=== PATIENT | female | born 1945 | race Caucasian/White ===

== ENCOUNTER 2020-07-17 12:13 | Outpatient (CLI) | payer MEDICARE, SELFPAY ==
--- NOTE | 2020-07-17 12:23 | XR_ITS ---
WS: [id number] EXAM: RIGHT KNEE: 3 VIEWS DATE OF EXAMINATION: 07/17/2020, 1232 hours COMPARISON: None. 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 Minimal joint fluid suprapatellar pouch. No fracture, lytic or blastic process is seen. Extra-articular soft tissues are unremarkable. XR/XR knee RT 3V* [id number] IMPRESSION: Slight changes of tricompartmental osteoarthritis with minimal joint fluid. No acute bony abnormality.
== END 2020-07-17 12:14 | disposition home or self-care (01) ==
PROVIDERS: PCP Electrodiagnostic Medicine; Visit Provider Electrodiagnostic Medicine
DX: M25.561 Pain in right knee (principal)
CPT/HCPCS: 73562

== ENCOUNTER 2020-07-19 11:58 | Emergency (ER) | payer MEDICARE, SELFPAY ==
[2020-07-19 12:08] VITALS: BP 143/85; PULSE 65; RESP 18; TEMP 36.4; O2SAT 98; BMI 31.8
--- NOTE | 2020-07-19 12:40 | XRR_ITS ---
PROCEDURE INFORMATION: Exam: XR Right Knee Exam date and time: 07/19/2020 1:09 PM Age: 74 years old Clinical indication: Pain; Swelling or effusion of joint; Knee; Right; Prior surgery; Surgery type: Meniscus; Additional info: Pain and swelling TECHNIQUE: Imaging protocol: XR Right knee. Views: 3 views. COMPARISON: CR XR knee RT 3V* [id number] 07/17/2020 12:30 PM FINDINGS: Bones/joints: Negative for acute bony abnormality. There is tricompartmental narrowing corresponding to mild osteoarthritis. Soft tissues: Normal. XR/XR knee RT 3V* [id number] IMPRESSION: Mild osteoarthritis Otherwise No acute findings.
--- NOTE | 2020-07-19 13:06 | USCV_ITS ---
[place], [place] Age: 74 Gender: F : 1945 Exam Date: 07/19/2020 14:01 Ordering Phys: Donny Taylor Technologist: Amber Ortiz Exam Location: [facility] [place] Indication: SWELLING AND PAIN HISTORY: Lower extremity swelling. PROCEDURES: Venous duplex imaging was performed in only the right lower extremity. The following venous structures were evaluated: common femoral vein, profunda vein, proximal portion of the greater saphenous vein, superficial femoral vein, and the popliteal vein. In addition, the posterior tibial and peroneal trunk were evaluated. Serial compression, augmentation maneuvers, and spectral Doppler flow evaluation were performed. FINDINGS: Normal 2-D Doppler and augmentation and compressibility throughout the lower extremity venous structures. Additional imaging through the proximal calf veins also reveals no thrombus. Limited evaluation of the greater saphenous vein is patent with no thrombus. CONCLUSIONS No DVT right lower extremity. Dr. Riya Bustillo DO (Electronically Signed) Final Date: 19 July 2020 15:42 S
--- NOTE | 2020-07-19 13:16 | W.ED.EXTPRO ---
HPI - Extremity Problem General: Chief complaint: Extremity Problem,Nontraumatic Stated complaint: right leg pain Time Seen by Provider: 07/19/20 13:09 History of Present Illness: HPI Narrative: Patient complains about right thigh muscle leg pain since Wednesday. Has been taking Excedrin for it has helped minimally she went saw her primary care provider Wednesday he ordered a knee x-ray which showed arthritis but she said it never has been her knee that is been bothering her is been her thigh muscle the whole time and it feels like a charley horse down from her thigh down to her calf hurts to bear weight on it. She denies any history of sciatica back pain or any low status problems. She has no redness no right lower extremity but she said it does appear somewhat swollen MD Complaint: extremity pain and extremity swelling Onset (ago): day(s) Pain Consistency: constant Location: right and lower extremity Severity scale (1-10): 5 Quality: aching and dull Radiation: distal Relieving factors: immobilization Exacerbating factors: range of motion and weight bearing Associated symptoms: Reports no associated symptoms; Deny chest pain, fever(s) or rash Review of Systems Const: Denies: fever(s), chills or body aches Eyes: Denies: change in vision or blurry vision ENMT: Denies: throat pain or nasal congestion Card: Denies: chest pain or dyspnea on exertion Resp: Denies: dyspnea, productive cough or non-productive cough GI: Denies: abdominal pain, nausea or vomiting Musc: Reports: extremity pain (Right lower extremity from thigh down to the calf) and extremity swelling Skin/Breast: Denies: rash Neuro: Denies: headache(s) Psych: Denies: anxiety or depression Akbar/Lymph: Denies: easy bruising Physical Exam Const: COMMON NORMALS: no acute distress, average body habitus and patient oriented x3 HENMT: COMMON NORMALS: normocephalic HEAD & SCALP: normal to inspection and normocephalic FACE & SINUS: normal facial exam Eye: COMMON NORMALS: conjunctivae normal GENERAL EYE: appearance normal, both eyes and all related structures CONJUNCTIVA: Yes conjunctivae normal Neck/C-Spine: COMMON NORMALS: no JVD Chest: COMMONS NORMALS: normal inspection of the chest Resp: COMMON NORMALS: normal respiratory effort and clear to auscultation bilaterally AUSCULTATION: clear to auscultation bilaterally Cardio: COMMON NORMALS: no JVD, regular rate and regular rhythm RATE: regular rate RHYTHM: regular rhythm GI: COMMON NORMALS: Normal to inspection, nondistended, normoactive bowel sounds present Extremity: COMMON NORMALS: normal to inspection RIGHT LOWER EXTREMITY: Yes lower leg (Has tenderness to the right posterior thigh and also to her calf positive Homans sign no redness no swelling noted does have positive pulses) Neuro: COMMON NORMALS: patient oriented x3 Course Vital Signs: Vital signs: Vital Signs Temperature 97.5 F L 07/19/20 12:08 Pulse Rate 62 07/19/20 14:17 Respiratory Rate 16 07/19/20 14:17 Blood Pressure 139/86 07/19/20 14:17 Pulse Oximetry 97 07/19/20 14:17 MDM - Extremity (Nontraumatic) MDM Narrative: Medical decision making narrative: Bloods not drawn due to unknown reason advised patient of what probable diagnosis says she did 1 go and have blood drawn afterwards that she not follow-up with her doctor. Ultrasound was negative. Discharge Plan Discharge Patient Disposition: Home Clinical Impression: Muscle strain of thigh Qualifiers: Encounter type: initial encounter Laterality: right Qualified Code(s): S76.911A - Strain of unspecified muscles, fascia and tendons at thigh level, right thigh, initial encounter Condition: Stable Discharge Orders: Discharge Order (Routine); Ordered 07/19/20 Ordered By: Donny Taylor Referrals: Isma Marcum DO [Primary Care Provider] - Discharge Diet: Usual diet Discharge Activity: Increase activity as tolerated Patient Instructions: Muscle Strain (ED) Activity Restrictions/Additional Instructions: Follow-up Dr. Marcum as directed. Alternate heat and ice 20 minutes at times up to 6 times a day. Use a roller on thigh muscle. Discharge Date/Time: 07/19/20 14:25 Coding Level of Care Code ED Transfer Machine Operator for Chg Fwd Exam Comprehensive
--- NOTE | 2020-07-19 14:02 | PC.NURSE ---
NO REPORT ASSUMED CARE OF PT.
[2020-07-19 14:17] VITALS: BP 139/86; PULSE 62; RESP 16; O2SAT 97
--- NOTE | 2020-07-19 14:17 | PC.NURSE ---
PT IS CALM COOPERATIVE AND ANSWERING QUESTIONS APPROPRIATELY. PT BREATHING IS NONLABORED. RATE AND RHYTHM ARE WNL. PT SKIN IS WARM DRY AND PINK.
== END 2020-07-19 14:25 | disposition home or self-care (01) ==
PROVIDERS: Emergency Provider Nurse Practitioner Family; PCP Electrodiagnostic Medicine
DX: S76.911A Strain of unspecified muscles, fascia and tendons at thigh level, right thigh, initial encounter (principal); X58.XXXA Exposure to other specified factors, initial encounter
CPT/HCPCS: 12345; 73562; 93971; 99281; 99283

== ENCOUNTER 2022-09-29 09:59 | Outpatient (CLI) | payer MEDICARE, SELFPAY ==
--- NOTE | 2022-09-29 10:17 | USCV_ITS ---
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 No evidence of any significant arterial obstruction, based on the above findings. Dr Katy Sosa MD [facility] (Electronically Signed) Final Date: 29 September 2022 21:29 S
== END 2022-09-29 10:00 | disposition home or self-care (01) ==
PROVIDERS: PCP Electrodiagnostic Medicine; Visit Provider Electrodiagnostic Medicine
DX: M79.89 Other specified soft tissue disorders (principal)
CPT/HCPCS: 93922

== ENCOUNTER → 2023-01-06 09:25 | Outpatient (BNVA) | payer MEDICARE, SELFPAY | PROVIDERS: PCP Electrodiagnostic Medicine; Visit Provider Specialist | DX: G62.89 Other specified polyneuropathies (principal) | CPT/HCPCS: 95909 ==

== ENCOUNTER → 2023-06-10 11:04 | Outpatient (BNVA) | payer MEDICARE, SELFPAY | PROVIDERS: PCP Family Medicine; Referring Provider Family Medicine; Visit Provider Psychiatry & Neurology Neurology | DX: R60.9 Edema, unspecified; E11.42 Type 2 diabetes mellitus with diabetic polyneuropathy; Z87.19 Personal history of other diseases of the digestive system; R01.1 Cardiac murmur, unspecified | CPT/HCPCS: 80053; 82652; 82746; 83921; 84155; 84165; 84439; 84443; 84481; 85025; 85651; 86140; 86160; 86162; 86235; 86255; 86334; 86376; 86617; 86780; 99203 ==

== ENCOUNTER 2023-08-05 14:59 | Outpatient (RCR) | payer MEDICARE, SELFPAY | END 2023-08-31 23:59 | disposition home or self-care (01) | LOC: SPT 14:59 | PROVIDERS: Visit Provider Psychiatry & Neurology Neurology | DX: I89.0 Lymphedema, not elsewhere classified (principal) | CPT/HCPCS: 97110; 97161 ==

== ENCOUNTER 2023-09-01 06:00 | Outpatient (RCR) | payer MEDICARE, SELFPAY | END 2023-09-30 23:59 | disposition home or self-care (01) | LOC: SPT 06:00 | PROVIDERS: Visit Provider Psychiatry & Neurology Neurology | DX: I89.0 Lymphedema, not elsewhere classified (principal) | CPT/HCPCS: 97110 ==

== ENCOUNTER 2023-10-01 06:00 | Outpatient (RCR) | payer MEDICARE, SELFPAY | END 2023-10-01 23:59 | disposition home or self-care (01) | LOC: SPT 06:00 | PROVIDERS: Visit Provider Psychiatry & Neurology Neurology | DX: I89.0 Lymphedema, not elsewhere classified (principal) | CPT/HCPCS: 97110 ==

== ENCOUNTER 2024-02-07 20:14 | Emergency (ER) | payer MEDICARE, SELFPAY ==
[2024-02-07 20:16] VITALS: BP 116/73; PULSE 84; TEMP 36.6; O2SAT 95
[2024-02-07] MEDS: famotidine 20 mg/2 mL INJ 40 MG IVP (20:37)
[2024-02-07] MEDS: diphenhydrAMINE 50 mg/mL SDV 1mL 25 MG IVP (20:38)
[2024-02-07] MEDS: methylPREDNISolone sod succ 125 mg/2 mL INJ IVP (20:38)
[2024-02-07] MEDS: metoclopramide 5 mg/mL SDV 2 mL 10 MG IVP (20:38)
[2024-02-07 21:01] VITALS: BP 139/79; PULSE 72; RESP 16; O2SAT 93
--- NOTE | 2024-02-07 21:49 | ED_ITS ---
HPI - Allergic Reaction General: Chief complaint: Allergic Reaction Stated complaint: allergic rxn Time Seen by Provider: 02/07/24 20:24 History of Present Illness: HPI narrative: 78-year-old female presents emergency de partment with concerns for having alejandro rgic reaction. She states that she was around her who is burning yard debris this afternoon when she suddenly began to feel like she was having shortness of breath, scratchy throat, generalized body erythema and urticaria. She states she also feels like her tongue is swelling. She states she is unsure if she was exposed to anything specifically and she is only allergic to latex and Tylenol. She does appear to be very anxious at present. Review of Systems General: Reports: 10 or more systems reviewed and unremarkable except in HPI and below Skin/Breast: Reports: rash, pruritus and erythema PFS ED PFSH: Medical History Diabetes mellitus Edema Social History Smoking and tobacco/nicotine status: never used tobacco/nicotine Alcohol intake: never Substance/Drug Use: never Physical Exam Narrative: EXAM NARRATIVE: Constitutional: the patient appears well nourished and of normal development. Vital signs as documented. No acute distress at present. Alert and oriented-to person, place, time and situation. Head, eyes, ears, nose, mouth, throat: Normocephalic, atraumatic. Pupils-equal, round, reactive to light. No scleral icterus. Normal-appearing external ears. Normal appearing nasal turbinates, no drainage. No obvious oral lesions, posterior oropharynx without erythema, edema or exudates. Neck: Supple, trachea is midline, no lymphadenopathy, no jugular venous distension, thyromegaly, or carotid bruits. Carotid upstrokes are brisk bilaterally. Lungs: clear to auscultation to all lung irby. Symmetrical rise and fall of chest, no obvious signs of increased work of breathing at present. Tachypnea/hyperventilation noted Cardiac: Regular rate and rhythm, positive S1, S2. No murmurs, rubs or gallops that I can appreciate Abdomen: Soft, non-tender to palpation, normal active bowel sounds to all quadrants. No palpable masses, no organomegaly and abdominal bruits. Extremities: 2+ pulses in the upper extremities that are equal bilaterally, 2+ pulses in the lower extremities that are equal bilaterally. Non-edematous. Moves all extremities well, sensation to all extremities are noted. Skin: Warm, dry, intact. Erythema and mild urticaria noted to bilateral arms neck and upper chest area. Psych: Anxious appearing, normal thought process, no SI no HI Course Vital Signs: Vital signs: Vital Signs Temperature 98 F 02/07/24 21:55 Pulse Rate 76 02/07/24 21:55 Respiratory Rate 16 02/07/24 21:55 Blood Pressure 127/78 02/07/24 21:55 Pulse Oximetry 94 02/07/24 21:55 Oxygen Delivery Me thod Room Air 02/07/24 21:01 MDM - Allergic Reaction Medical Decision Making Physical exam completed and documented I did provide the patient antihistamines as well as steroids and will monitor for resolution. I will have her follow-up with her primary care provider and have provided her prescriptions at the time of discharge as well as discharge instructions. Medical Records I reviewed the patient's medical records. No radiology studies performed this visit Discharge Plan Discharge Patient Disposition: Home Clinical Impression: Urticaria Allergic reaction Qualifiers: Encounter type: initial encounter Qualified Code(s): T78.40XA - Allergy, unspecified, initial encounter Condition: Stable Prescriptions: New hydroxyzine HCl 25 mg tablet 25 mg PO TID PRN (Reason: itching) Qty: 20 0RF cetirizine 10 mg tablet 10 mg PO DAILY Qty: 14 0RF No Action albuterol sulfate 90 mcg/actuation HFA aerosol inhaler inhalation (DME) lancets [OneTouch Delica Plus Lancet] 30 gauge misc See Rx Instructions .Route Qty: 100 5RF Rx Instructions: As directed (DME) OneTouch Ultra Test Strip See Rx Instructions .Route Qty: 50 5RF Rx Instructions: As directed Discharge Orders: Discharge ED (Routine); Ordered 02/07/24 Ordered By: Zeus Jenkins Discharge Diet: Usual diet Discharge Activity: Resume usual activity Patient Instructions: Opioid Safety, Pain Management Activity Restrictions/Additional Instructions: Activity Restrictions/Additional Instructions: Thank you for choosing [facility] for your healthcare needs today. Please realize that you were seen in the Emergency Department and that we are providing you with an emergency medical screening exam and this may not be a complete and all inclusive of all the testing and or medical work-up that you may need to determine your ailment or severity of your illness. It is very important that you follow-up as instructed with your Primary care provider or Specialist for additional evaluation and to discuss your medical treatment plan. You may return to the Emergency Department should you have concerns or if your condition changes or worsens in any way. 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
[2024-02-07 21:55] VITALS: BP 127/78; PULSE 76; RESP 16; TEMP 36.6; O2SAT 94
== END 2024-02-07 22:11 | disposition home or self-care (01) ==
PROVIDERS: Emergency Provider Internal Medicine
DX: L50.9 Urticaria, unspecified (principal); T78.40XA Allergy, unspecified, initial encounter; E11.9 Type 2 diabetes mellitus without complications; X58.XXXA Exposure to other specified factors, initial encounter
CPT/HCPCS: 96374; 96375; 99284; J1200; J2765; J2919; J3490

== ENCOUNTER 2024-03-27 00:37 | Emergency (ER) | payer MEDICARE, SELFPAY ==
[2024-03-27] VITALS (8 sets, daily range): BP systolic 126–153; BP diastolic 69–82; PULSE 66–69; RESP 17; TEMP 36.6; O2SAT 92–98; BMI 29.2
--- NOTE | 2024-03-27 01:18 | ED_ITS ---
HPI - Allergic Reaction General: Chief complaint: Allergic Reaction Stated complaint: swollen tounge allergic reaction Time Seen by Provider: 03/27/24 01:09 History of Present Illness: HPI narrative: Patient presents to the ER with complaints of allergic reaction. Approximately 2 hours ago patient started having itching and swelling when she comes in contact with some unknown substance that she was symptomatic and sensitive to. Patient states then her throat seem to be swollen and her tongue seem to be full and she did have a hard time breathing. She did take 25 mg of hydroxyzine and 10 mg of Zyrtec and then and she has improved. Now she has no problems breathing but her tongue still feels thick in her throat a little swollen. Patient is in no acute distress and is nontoxic. Review of Systems General: Reports: 10 or more systems reviewed and unremarkable except in HPI and below PFSH ED PFSH: Medical History Edema Diabetes mellitus Social History Smoking and tobacco/nicotine status: never used tobacco/nicotine Alcohol intake: never Substance/Drug Use: never Physical Exam Const: COMMON NORMALS: no acute distress, average body habitus, patient oriented x3, no limitations, healthy appearing, alert and well nourished HENMT: COMMON NORMALS: normocephalic, atraumatic, hearing grossly normal bilaterally, external ears normal, Normal external nose present, moist oral mucous membranes and oropharynx normal HEAD & SCALP: normocephalic and atraumatic NOSE: Normal external nose present EXTERNAL EAR: Yes external ears normal Neck/C-Spine: COMMON NORMALS: full ROM, no lymphadenopathy, supple, no meningeal signs, no JVD and Thyroid normal THYROID: Thyroid normal Chest: COMMONS NORMALS: normal inspection of the chest and normal palpation of entire chest wall Resp: COMMON NORMALS: normal respiratory effort, No retractions, No use of accessory muscles and clear to auscultation bilaterally AUSCULTATION: clear to auscultation bilaterally Cardio: COMMON NORMALS: no JVD, regular rate, regular rhythm, S1 normal heart sound present, S2 normal heart sound present, No gallops present (Cardio), No clicks present (Cardio), No murmurs present (Cardio) and No rub (Cardio) RATE: regular rate RHYTHM: regular rhythm HEART SOUNDS: S1 normal heart sound present and S2 normal heart sound present GI: COMMON NORMALS: Normal to inspection, nondistended, normoactive bowel shay nds present, Soft to palpation, non-tender, No hepatosplenomegaly present and no masses PALPATION: Yes Soft to palpation and Yes No hepatosplenomegaly present Neuro: COMMON NORMALS: patient oriented x3 SENSORIUM/ORIENTATION: Yes alert MENINGEAL SIGNS: Yes no meningeal signs Course Vital Signs: Vital signs: Vital Signs Temperature 97.8 F 03/27/24 00:42 Pulse Rate 66 03/27/24 00:42 Respiratory Rate 17 03/27/24 00:42 Blood Pressure 126/77 03/27/24 00:42 Pulse Oximetry 98 03/27/24 00:42 Oxygen Delivery Me thod Room Air 03/27/24 00:42 MDM - Allergic Reaction Medical Decision Making Patient received 10 mg Decadron 40 mg of Pepcid and she was observed for proximately 2 hours patient said she felt better and was ready to go home. Patient be discharged home. No radiology studies performed this visit Discharge Plan Discharge Patient Disposition: Home Clinical Impression: Allergic reaction Qualifiers: Encounter type: initial encounter Qualified Code(s): T78.40XA - Allergy, unspecified, initial encounter Condition: Stable Prescriptions: No Action albuterol sulfate 90 mcg/actuation HFA aerosol inhaler inhalation (DME) lancets [OneTouch Delica Plus Lancet] 30 gauge misc See Rx Instructions .Route Qty: 100 5RF Rx Instructions: As directed (DME) OneTouch Ultra Test Strip See Rx Instructions .Route Qty: 50 5RF Rx Instructions: As directed hydroxyzine HCl 25 mg tablet 25 mg PO TID PRN (Reason: itching) Qty: 20 0RF cetirizine 10 mg tablet 10 mg PO DAILY Qty: 14 0RF Discharge Orders: Discharge ED (Routine); Ordered 03/27/24 Ordered By: Ciro Abdi Referrals: Musa Del Castillo MD [Primary Care Provider] - 1 week Patient Instructions: Allergic Reaction Activity Restrictions/Additional Instructions: He received Pepcid 40 mg by mouth and Decadron 10 mg intramuscular shot. These have seemed to help your allergic reaction. Please keep the cetirizine, predni sone and hydroxyzine on hand in case you have another reaction. Please follow- up with your family practice physician for further evaluation and treatment. 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
[2024-03-27] MEDS: famotidine 20 mg Tablet 40 MG PO (01:33)
[2024-03-27] MEDS: dexamethasone 10 mg/mL INJ IM (01:34)
== END 2024-03-27 02:45 | disposition home or self-care (01) ==
PROVIDERS: Emergency Provider Emergency Medicine; PCP Family Medicine
DX: T78.40XA Allergy, unspecified, initial encounter (principal); E11.9 Type 2 diabetes mellitus without complications; X58.XXXA Exposure to other specified factors, initial encounter
CPT/HCPCS: 96372; 99284; J1100